=== PATIENT | male | born 1950 | race Caucasian/White ===

== ENCOUNTER 2018-01-13 14:11 | Day surgery (SDC) | payer OTHER, BC ==
[2018-01-12 12:53] VITALS: BMI 27.1
[2018-01-13] MEDS ORDERED: BUPIVACAINE HCL 0.25% 125 MG/50 ML VIAL ONE ×2 (16:50→17:24)
[2018-01-13] MEDS ORDERED: MIDAZOLAM HCL 2 MG/2 ML SINGLE DOSE VIAL ONE (17:10)
[2018-01-13] MEDS ORDERED: PROPOFOL 20 ML ONE (17:11)
[2018-01-13] MEDS ORDERED: DEXAMETHASONE SOD PHOSPHATE 4 MG/1 ML VIAL ONE (18:05)
[2018-01-13] MEDS ORDERED: ONDANSETRON 4 MG/2 ML VIAL ONE (18:05)
[2018-01-13] MEDS ORDERED: KETOROLAC TROMETHAMINE 30 MG/1 ML VIAL ONE (18:05)
[2018-01-13] MEDS ORDERED: LIDOCAINE HCL 2% JELLY (5 ML/TUBE) ONE (18:05)
[2018-01-13] MEDS ORDERED: ceFAZolin SODIUM 1 GM VIAL ONE (18:05)
[2018-01-13] MEDS ORDERED: LIDOCAINE HCL/PF 2% SDV 5ML VIAL ONE (18:05)
[2018-01-13] MEDS ORDERED: ONDANSETRON 4 MG/2 ML VIAL IVPUSH PRN (18:26)
[2018-01-13] MEDS ORDERED: PROMETHAZINE HCL 25 MG/1 ML VIAL IVPUSH PRN (18:26)
[2018-01-13] MEDS ORDERED: oxyCODONE HCL 5 MG TABLET PO PRN ×2 (18:26)
[2018-01-13] MEDS ORDERED: LACTATED RINGERS SOLUTION 1,000 ML IV SCH (18:30)
[2018-01-13 19:31] VITALS: BP 128/78; PULSE 72; TEMP 98
--- NOTE | 2018-01-14 07:08 | OP ---
DATE OF OPERATION: 01/13/2018 PREOPERATIVE DIAGNOSIS: Right extensor pollicis longus laceration. POSTOPERATIVE DIAGNOSIS: Right extensor pollicis longus laceration. OPERATIVE PROCEDURE: Repair of right extensor pollicis longus laceration. SURGEON: Yaya Bowden MD RESOURCE EFFICIENCY MANAGER: MANISH Gomez ANESTHESIA: General. COMPLICATIONS: None. ESTIMATED BLOOD LOSS: Minimal. INDICATIONS FOR PROCEDURE: The patient is a 67-year-old male with the above finding, indicated for operative treatment. The risks, benefits, and alternatives were discussed with the patient, and proper informed consent was obtained. DESCRIPTION OF PROCEDURE: After proper identification of the patient and the correct operative site, the patient was brought to the operating room and placed on the table with prominences well padded. General anesthesia was provided by the anesthesiologist. Right upper extremity was prepped and draped in the usual sterile fashion. A well-padded tourniquet was placed with a sterile prep. Esmarch bandage used to exsanguinate the right upper extremity. Tourniquet was inflated to 250 mmHg. Prior laceration was opened and extended proximally and distally about 1 cm in each direction. Full thickness laceration of the extensor tendon was found just distal to the MP joint without any evidence of metacarpophalangeal joint involvement. The tendon was not significantly retracted as the sagittal fibers were holding it in place. The tendon was then repaired using a combination of 3-0 Ethibond and 5-0 nylon suture, which provided secure stable repair of the tendon. Wound was repaired using a 5-0 nylon suture. Sterile dressings and a splint were placed with the thumb in extension. The patient was reversed from anesthesia and brought to the recovery room in stable condition. He tolerated the procedure well. Chris Trujillo, the certified anesthesiologist assistant, was integral throughout the procedure. Procedure could not have been performed without a skilled operative certified anesthesiologist assistant. YAYA BOWDEN M.D. [id number]
== END 2018-01-13 19:47 | disposition home or self-care (01) ==
LOC: FASU 14:11
PROVIDERS: ATTEND Orthopaedic Surgery Hand Surgery
PROC: 0LQ70ZZ Repair Right Hand Tendon, Open Approach (ICD-10-PCS; principal; 2018-01-13 17:41)
DX: S66.221A Laceration of extensor muscle, fascia and tendon of right thumb at wrist and hand level, initial encounter (principal); X58.XXXA Exposure to other specified factors, initial encounter; Y93.9 Activity, unspecified; Y92.9 Unspecified place or not applicable
CPT/HCPCS: 94760